=== PATIENT | female | born 1990 | race Caucasian/White ===

== ENCOUNTER 2017-09-05 14:45 | Inpatient (IN) | payer OTHER ==
[~2017-09-05] VITALS: Ht 165.1 cm; Wt 137.4 kg
[2017-09-23] MEDS ORDERED: ZANTAC300 MG PO (17:20)
[2017-09-23] MEDS ORDERED: PRENATAL TABLE1 EAC1 PO (17:20)
== END 2017-09-24 18:06 | disposition home or self-care (01) | DRG 780 ==
LOC: LDR 09-23 15:25 → OB/GYN 09-27 14:45
PROC: 4A1HXCZ Monitoring of Products of Conception, Cardiac Rate, External Approach (ICD-10-PCS; principal; 2017-09-23)
DX: O47.03 False labor before 37 completed weeks of gestation, third trimester (principal); N39.0 Urinary tract infection, site not specified; O13.3 Gestational [pregnancy-induced] hypertension without significant proteinuria, third trimester

== ENCOUNTER 2017-09-23 13:10 | Outpatient (CLI) | payer OTHER ==
[2017-09-23] MEDS ORDERED: ZANTAC300 MG PO (17:20)
[2017-09-23] MEDS ORDERED: PRENATAL TABLE1 EAC1 PO (17:20)
== END 2017-09-23 15:25 | disposition still patient (30) ==
LOC: OBS/DEL 13:10
DX: O13.3 Gestational [pregnancy-induced] hypertension without significant proteinuria, third trimester (principal); O47.1 False labor at or after 37 completed weeks of gestation; Z34.03 Encounter for supervision of normal first pregnancy, third trimester

== ENCOUNTER 2017-09-26 01:28 | Inpatient (IN) | payer OTHER ==
[~2017-09-26] VITALS: Ht 165.1 cm; Wt 137.4 kg
[~2017-09-26 01:28] MED LIST: PRENATAL TABLE1 EAC1 PO; ZANTAC300 MG PO
== END 2017-09-28 16:58 | DRG 775 ==
LOC: LDR 01:28 → OB/GYN 03:22
PROC: 10E0XZZ Delivery of Products of Conception, External Approach (ICD-10-PCS; principal; 2017-09-26)
PROC: 0HQ9XZZ Repair Perineum Skin, External Approach (ICD-10-PCS; 2017-09-26)
PROC: 4A1HXCZ Monitoring of Products of Conception, Cardiac Rate, External Approach (ICD-10-PCS; 2017-09-26)
DX: O70.0 First degree perineal laceration during delivery (principal); O99.824 Streptococcus B carrier state complicating childbirth; O69.81X0 Labor and delivery complicated by cord around neck, without compression, not applicable or unspecified; Z3A.39 39 weeks gestation of pregnancy; Z37.0 Single live birth